=== PATIENT | female | born 1985 | race Caucasian/White ===

== ENCOUNTER → 2017-05-29 | Outpatient (CLI) | payer BC ==
[~2017-05-29] MED LIST: FLNIN NAE; IBUP-1277 PO; LORA0.5T12 PO; NADO20TA PO; SUMA50TA17 PO
== END | disposition home or self-care (01) ==
LOC: C.PAPS 08:40
PROVIDERS: ATTEND Obstetrics & Gynecology
DX: Z01.419 Encounter for gynecological examination (general) (routine) without abnormal findings (principal)

== ENCOUNTER 2017-12-19 19:17 | Emergency (ER) | payer BC, OTHER ==
[~2017-12-19] VITALS: Ht 165.1 cm; Wt 100.5 kg
[2017-12-19 19:45] VITALS: TEMP 36.9; Ht 165.1 cm; Wt 100.5 kg
--- NOTE | 2017-12-19 20:58 | EMERGENCY ROOM VISIT NOTE ---
History Report prepared by [place]: Marcial Salgado Under the Supervision of: Dr. Margo Sierra M.D. First contact with patient: 20:34 Chief Complaint: ANXIETY Stated Complaint: ANXIETY, REFERRED History of Present Illness The patient is a 32 year old female who presents to the Emergency Room with complaints of constant anxiety beginning 4.5 hours ago. The patient states she developed dizziness and lightheadedness earlier this afternoon. She reports she ate an orange and could tell something was not right. The patient notes she has a history of anxiety attacks 5 years ago. She states tonight was her first anxiety attack in a while. The patient reports she was evaluated by her PCP and wanted to be placed on anxiety medication again. She notes she told her PCP she has a family history of blood clots. The patient states her PCP told her to go straight to the ED. She reports her father has a history of blood clots in her lungs, and her grandmother currently has them. She states she breaths in and she experiences chest discomfort. The patient notes she has not been taking her Synthroid like she was supposed to for the past few weeks. She states she started taking it a week ago. The patient reports she developed diarrhea this afternoon and has had about 5 episodes so far. She denies using control, the chance of , swelling or cramping in her legs, cough, fevers, recent travel, pain with urination, and vomiting. Source of History: patient Onset: 4.5 hours ago Quality: other (anxiety) Timing: constant Associated Symptoms: + chest pain, No fevers, No cough, No vomiting Note: Associated symptoms: lightheadedness and dizziness Denies: recent travel, pain with urination Review of Systems See HPI for pertinent positives & negatives. A total of 10 systems reviewed and were otherwise negative. Past Medical & Surgical Medical Problems: (1) Anxiety attack (2) section Family History Blood clots Cancer Diabetes mellitus Hypertension Kidney disease Kidney stones Social History Smoking Status: Never Smoker Alcohol Use: occasionally Drug Use: none Marital Status: Housing Status: lives with family Occupation Status: employed Current/Historical Medications Scheduled Levothyroxine Sodium (Synthroid), 25 MCG PO DAILY Allergies Coded Allergies: No Known Allergies (Verified , 12/19/17) Physical Exam Vital Signs Date Time Temp Pulse Resp B/P (MAP) Pulse Ox O2 Delivery O2 Flow Rate FiO2 12/19/17 23:45 94 22 124/79 98 12/19/17 22:39 108 22 130/82 96 Room Air 12/19/17 22:31 120 12/19/17 22:28 108 22 130/82 109 139/92 111 141/90 12/19/17 19:45 36.9 112 20 160/98 99 Room Air Physical Exam Vital signs reviewed. General: Well-appearing 32 year old female, in no significant distress. HEENT: No scleral icterus, PERRLA, neck supple. Atraumatic. Cardiovascular: Tachycardic rate and regular rhythm, no extra sounds. Pulmonary: Clear to auscultation bilaterally, normal work of breathing. Abdomen: Soft, nontender, nondistended, positive bowel sounds. Musculoskeletal: Atraumatic, no peripheral edema. Neurologic: Patient awake alert and oriented x 3, full strength in all 4 extremities. Cranial nerves 2 through 12 grossly intact. Skin: Warm, dry, no rash Medical Decision & Procedures ER Provider Diagnostic Interpretation: X-ray results as stated below per interpretation by me and the radiologist: CHEST ONE VIEW PORTABLE CLINICAL HISTORY: tachycardia, SOB COMPARISON STUDY: Chest radiograph February 06, 2013. FINDINGS: The lung volumes are normal. Lungs are clear. No pneumothorax or pleural effusion is noted. Cardiac size is normal. Mediastinal contours are normal. Pulmonary vascularity is normal. IMPRESSION: No acute cardiopulmonary findings. Electronically signed by: Bird Draper M.D. 12/19/2017 9:02 PM Dictated Date/Time: 12/19/2017 9:01 PM Laboratory Results 12/19/17 20:46 Red Blood Count 4.43, Mean Corpuscular Volume 84.7, Mean Corpuscular Hemoglobin 28.9, Mean Corpuscular Hemoglobin Concent 34.1, Mean Platelet Volume 9.9, Neutrophils (%) (Auto) 82.3, Lymphocytes (%) (Auto) 13.9, Monocytes (%) (Auto) 3.1, Eosinophils (%) (Auto) 0.2, Basophils (%) (Auto) 0.2, Neutrophils # (Auto) 9.68, Lymphocytes # (Auto) 1.63, Monocytes # (Auto) 0.37, Eosinophils # (Auto) 0.02, Basophils # (Auto) 0.02 12/19/17 20:46 Test 4/11/18 20:46 12/19/17 20:55 White Blood Count 11.75 K/uL (4.8-10.8) Red Blood Count 4.43 M/uL (4.2-5.4) Hemoglobin 12.8 g/dL (12.0-16.0) Hematocrit 37.5 % (37-47) Mean Corpuscular Volume 84.7 fL (80-100) Mean Corpuscular Hemoglobin 28.9 pg (25-34) Mean Corpuscular Hemoglobin Concent 34.1 g/dl (32-36) Platelet Count 391 K/uL (130-400) Mean Platelet Volume 9.9 fL (7.4-10.4) Neutrophils (%) (Auto) 82.3 % Lymphocytes (%) (Auto) 13.9 % Monocytes (%) (Auto) 3.1 % Eosinophils (%) (Auto) 0.2 % Basophils (%) (Auto) 0.2 % Neutrophils # (Auto) 9.68 K/uL (1.4-6.5) Lymphocytes # (Auto) 1.63 K/uL (1.2-3.4) Monocytes # (Auto) 0.37 K/uL (0.11-0.59) Eosinophils # (Auto) 0.02 K/uL (0-0.5) Basophils # (Auto) 0.02 K/uL (0-0.2) RDW Standard Deviation 43.3 fL (36.4-46.3) RDW Coefficient of Variation 13.9 % (11.5-14.5) Immature Granulocyte % (Auto) 0.3 % Immature Granulocyte # (Auto) 0.03 K/uL (0.00-0.02) Anion Gap 7.0 mmol/L (3-11) Est Creatinine Clear Calc Drug Dose 105.6 ml/min Estimated GFR () 98.7 Estimated GFR (Non- 85.2 BUN/Creatinine Ratio 12.6 (10-20) Calcium Level 9.0 mg/dl (8.5-10.1) Thyroid Stimulating Hormone (TSH) 2.110 uIu/ml (0.300-4.500) Free Thyroxine 1.08 ng/dl (0.80-1.60) Bedside D-Dimer 330 ng/mlFEU (0-450) Laboratory results per my review. Medications Administered Medications (Trade) Dose Ordered Sig/Julian Route Start Time Stop Time Status Last Admin Dose Admin Sodium Chloride 500 ml @ 999 mls/hr Q31M STAT IV 12/19/17 22:25 12/19/17 22:55 DC 12/19/17 22:29 999 MLS/HR ECG Per My Interpretation Indication: tachycardia Rate (beats per minute): 118 Rhythm: sinus tachycardia Findings: nonspecific-ST abn, no ectopy, other (QTc of 468) ED Course 2042: Past medical records reviewed. The patient was evaluated in room C09. A complete history and physical examination was performed. 5: Ordered Sodium Chloride 500 ml @ 999 mls/hr IV 2314: Upon reevaluation, the patient appeared to have improvement of her symptoms. I discussed findings with her. She verbalized agreement of the treatment plan. The patient was discharged home. Medical Decision Differential diagnosis: Etiologies such as premature contractions, electrolyte abnormality, cardiac dysrhythmia, thyroid dysfunction, pulmonary embolism, infection, gastrointestinal, as well as others were entertained. This patient was evaluated and appeared to be in no significant distress. IV access was obtained and laboratory work was drawn. The patient was placed on the telemetry monitor and found to be in a sinus tachycardia. She was hydrated with normal saline solution. Orthostatic vital signs are negative. Laboratory work reveals a negative d-dimer. Chest x-ray was obtained and is clear. Patient was reevaluated and was feeling improved. She was reassured regarding her findings. The patient will be discharged to follow-up with her PCP for reevaluation if symptoms persist. She was advised against using any caffeine or similar stimulants. She will return to the ER for worsening of symptoms or any medical concerns. Medication Reconcilliation Current Medication List: was personally reviewed by me Blood Pressure Screening Patient's blood pressure: Normal blood pressure Blood pressure disposition: Did not require urgent referral Impression Primary Impression: Tachycardia Scribe Attestation The scribe's documentation has been prepared under my direction and personally reviewed by me in its entirety. I confirm that the note above accurately reflects all work, treatment, procedures, and medical decision making performed by me. Departure Information Dispostion Home / Self-Care Referrals Meliza Perez (PCP) Forms HOME CARE DOCUMENTATION FORM, IMPORTANT VISIT INFORMATION Patient Instructions My [facility] Additional Instructions Diagnosis: Tachycardia Please drink plenty of clear fluids. Minimize stimulants such as coffee and soda. Follow-up with your primary care physician this week for reevaluation. Return to the emergency department for worsening of symptoms or any medical concerns.
--- NOTE | 2017-12-19 21:03 | DIAGNOSTIC IMAGING REPORT ---
CHEST ONE VIEW PORTABLE CLINICAL HISTORY: tachycardia, SOB COMPARISON STUDY: Chest radiograph February 06, 2013. FINDINGS: The lung volumes are normal. Lungs are clear. No pneumothorax or pleural effusion is noted. Cardiac size is normal. Mediastinal contours are normal. Pulmonary vascularity is normal. IMPRESSION: No acute cardiopulmonary findings. Electronically signed by: Bird Draper M.D. 12/19/2017 9:02 PM Dictated Date/Time: 12/19/2017 9:01 PM
[2017-12-19 21:08] LABS: BASO % 0.2 %; BASO ABS # 0.02 K/uL (0-0.2); EOS % 0.2 %; EOS ABS # 0.02 K/uL (0-0.5); HEMATOCRIT 37.5 % (37-47); HEMOGLOBIN 12.8 g/dL (12.0-16.0); IG# 0.03 K/uL (0.00-0.02); LYMPH % 13.9 %; LYMPH ABS # 1.63 K/uL (1.2-3.4); MEAN CELL VOLUME 84.7 fL (80-100); MEAN CORPUSCULAR HEMOGLOBIN 28.9 pg (25-34); MEAN CORPUSCULAR HGB CONC 34.1 g/dl (32-36); MEAN PLATELET VOLUME 9.9 fL (7.4-10.4); MONO % 3.1 %; MONO ABS # 0.37 K/uL (0.11-0.59); NEUT % 82.3 %; NEUT ABS # 9.68 K/uL (1.4-6.5); PLATELET COUNT 391 K/uL (130-400); RED CELL DISTRIBUTION WIDTH CV 13.9 % (11.5-14.5); RED CELL DISTRIBUTION WIDTH SD 43.3 fL (36.4-46.3); WHITE BLOOD COUNT 11.75 K/uL (4.8-10.8)
[2017-12-19 21:22] LABS: CREATININE 0.89 mg/dl (0.60-1.20); POTASSIUM 3.8 mmol/L (3.5-5.1)
[2017-12-19] MEDS ORDERED: SODIUM CHLORIDE 0.9% 500ML 500 ML IV STA (22:25)
[2017-12-19] MEDS ORDERED: LEVO25TA PO (23:08)
[2017-12-19 23:45] VITALS: BP 124/79; PULSE 94; O2SAT 98
== END 2017-12-19 23:46 | disposition home or self-care (01) ==
LOC: C.EDB 19:18 → C.EDC 23:46
DX: R00.0 Tachycardia, unspecified (principal); R19.7 Diarrhea, unspecified; Z83.2 Family history of diseases of the blood and blood-forming organs and certain disorders involving the immune mechanism; Z83.3 Family history of diabetes mellitus; Z82.49 Family history of ischemic heart disease and other diseases of the circulatory system; Z84.1 Family history of disorders of kidney and ureter